=== PATIENT | male | born 1955 | race Caucasian/White ===

== ENCOUNTER 2020-11-13 10:24 | Emergency (ER) | payer OTHER, SELFPAY ==
[2020-11-13 10:25] VITALS: BP 169/108; PULSE 101; RESP 16; TEMP 36.9; O2SAT 99; BMI 22.7
--- NOTE | 2020-11-13 10:43 | ED.VIS.GI ---
HPI HPI - GI History of Present Illness Chief Complaint: Abd Pain Informant: patient Narrative Narrative: Patient has right groin pain. Is been ongoing for 4 days. He started with back pain a week ago when he was outside working. It is now concentrated in the right groin area. Is worse when he moves and walks. Laying in the bed he is currently pain-free. No nausea, vomiting, diarrhea or constipation. Denies any dysuria or hematuria. No history of kidney stones in the past. He has been trying aspirin and Tylenol without any relief. He does have a history of a hernia repair on that right side when he was a child. No history of any other abdominal surgeries. He denies any pain in his testicles. The pain does radiate down his right leg. PFSH PFSH Home Medications aspirin 81 mg PO DAILY 11/13/20 [History Last Taken Unknown] lidocaine [Lidoderm] 1 patch TOPICAL DAILY #15 ea 11/13/20 [Rx Last Taken Unknown] multivitamin with minerals [Multi-Daily W/Minerals] 2 tab PO DAILY 11/13/20 [History Last Taken Unknown] Allergy/AdvReac Type Severity Reaction Status Date / Time Sulfa (Sulfonamide Allergy Unknown Verified 11/13/20 10:25 Antibiotics) Surgical History (Updated 11/13/20 @ 10:[address] Donnie Angulo MD) H/O hernia repair Intracranial shunt Social History Smoking Status: Never smoker ROS ROS ED Constitutional Constitutional ED: Denies chills or fever(s) Eyes Eyes: Denies blurry vision, change in vision or diplopia ENT ENT ED: Denies ear pain, rhinorrhea or sore throat Cardiovascular Cardiovascular: Denies chest pain or palpitations Respiratory/Chest Respiratory/Chest: Denies cough, dyspnea or sputum Gastrointestinal Gastrointestinal: Reports abdominal pain Genitourinary Genitourinary ED: Denies dysuria, hematuria or urinary frequency Musculoskeletal Musculoskeletal: Denies back pain or neck pain Integumentary Denies change in pigmentation or rash Neurologic Neurologic: Denies headache(s), numbness or weakness Psychiatric Psychiatric: Denies anxiety or depression Endocrine Endocrinology: Denies polydipsia or polyuria EXAM Physical Exam Const Vital Signs: 11/13/20 10:25 Temperature 98.5 F Temperature Source Temporal Pulse Rate 101 H Respiratory Rate 16 Blood Pressure 169/108 H Blood Pressure Mean 128 Pulse Ox 99 Oxygen Delivery Method Room Air Positive well nourished and well developed General Appearance ED: well developed and NAD HEENT Reports moist mucous membranes normocephalic and atraumatic; Negative for tenderness Eyes PERRL and EOMs intact bilaterally Neck supple and no JVD Chest Wall Chest: Negative for tenderness Resp normal respiratory effort and clear to auscultation bilaterally Effort and Inspection: Negative for respiratory distress Cardio regular rate, regular rhythm and no murmurs Rate: regular rate Rhythm: regular rhythm GI soft to palpation, non-tender and non-distended Palpation: soft Back/Spine no CVA tenderness and no thoracic nor lumbar tenderness Cervical Spine: Negative for cervical spine tenderness Extremity normal to inspection and full ROM General Extremety ED: Negative for tenderness Neuro oriented x3, CN's II-XII intact bilaterally and no sensory deficits noted Sensorium / Orientation: awake and alert Motor Exam: strength 5/5 throughout Psych mental status grossly normal Skin no rashes or lesions noted MDM MDM MDM Narrative Medical decision making narrative: Patient was not having any pain lying in bed. Labs are unremarkable save a glucose of 108. CAT scan reveals nothing acute. I feel he likely has a groin strain as this did occur while he was working outside. Is worse with movement. Patient will be given a Lidoderm patch to place on this area. He continued to take NSAIDs at home and will follow up with his PCP. Lab Data Labs: Laboratory Results - last 24 hr 11/13/20 11/13/20 11/13/20 10:59 10:59 11:20 WBC Cancelled Corrected WBC Cancelled RBC Cancelled Hgb Cancelled Hct Cancelled MCV Cancelled MCH Cancelled MCHC Cancelled RDW Std Deviation Cancelled RDW Coeff of Reynaldo Cancelled Plt Count Cancelled MPV Cancelled Immature Gran % (Auto) Cancelled Neut % (Auto) Cancelled Lymph % (Auto) Cancelled [place] % (Auto) Cancelled Eos % (Auto) Cancelled Baso % (Auto) Cancelled Absolute Neuts (auto) Cancelled Absolute Lymphs (auto) Cancelled Total Counted Cancelled Neutrophils % (Manual) Cancelled Band Neutrophils % Cancelled Lymphocytes % (Manual) Cancelled Monocytes % (Manual) Cancelled Eosinophils % (Manual) Cancelled Basophils % (Manual) Cancelled Metamyelocytes % Cancelled Myelocytes % Cancelled Promyelocytes % Cancelled Blast Cells % Cancelled Plasma Cell % (Manual) Cancelled Other Cells % Cancelled Nucleated RBC % Cancelled Nucleated RBCs/100 WBC Cancelled Differential Comment Cancelled Diff Path Review Cancelled Hypersegmented Neuts Cancelled Atypical Lymphocytes Cancelled Reactive Lymphocytes Cancelled Smudge Cells Cancelled Toxic Granulation Cancelled Toxic Vacuolation Cancelled Dohle Bodies Cancelled Gracy Rods Cancelled Platelet Estimate Cancelled Plt Morphology Comment Cancelled RBC Morphology Cancelled Polychromasia Cancelled Hypochromasia Cancelled Poikilocytosis Cancelled Basophilic Stippling Cancelled Anisocytosis Cancelled Microcytosis Cancelled Macrocytosis Cancelled Spherocytes Cancelled Sickle Cells Cancelled Target Cells Cancelled Tear Drop Cells Cancelled Ovalocytes Cancelled Stomatocytes Cancelled [place] Bodies Cancelled Deniz Cells Cancelled Bite Cells Cancelled Crenated Cell Cancelled Acanthocytes (Spur) Cancelled Rouleaux Cancelled Schistocytes Cancelled Sodium Cancelled Potassium Cancelled Chloride Cancelled Carbon Dioxide Cancelled Anion Gap Cancelled BUN Cancelled Creatinine Cancelled Estim Creat Clear Calc Cancelled Est GFR (MDRD) Af Amer Cancelled Est GFR (MDRD) Non-Af Cancelled BUN/Creatinine Ratio Cancelled Glucose Cancelled Calcium Cancelled Total Bilirubin Cancelled AST Cancelled ALT Cancelled Alkaline Phosphatase Cancelled Total Protein Cancelled Albumin Cancelled Globulin Cancelled Albumin/Globulin Ratio Cancelled Urine Color Yellow Urine Clarity Clear Urine pH 7.0 Ur Specific [place] 1.010 Urine Protein 30 H Urine Glucose (UA) Normal Urine Ketones Negative Urine Occult Blood Negative Urine Nitrite Negative Urine Bilirubin Negative Urine Urobilinogen Normal Ur Leukocyte Esterase Negative Urine RBC 0 SEEN Urine WBC 0 SEEN Ur Squamous Epith Cells 0 SEEN Urine Bacteria 0 SEEN Urine Mucus 0 SEEN 11/13/20 11/13/20 11:40 11:40 WBC 6.2 Corrected WBC RBC 4.69 Hgb 14.9 Hct 42.4 MCV 90.4 MCH 31.8 MCHC 35.1 RDW Std Deviation 37.9 RDW Coeff of Reynaldo 11.6 Plt Count 249 MPV 10.7 Immature Gran % (Auto) 0.200 Neut % (Auto) 77.0 H Lymph % (Auto) 15.3 L [place] % (Auto) 6.5 Eos % (Auto) 0.2 Baso % (Auto) 0.8 Absolute Neuts (auto) 4.8 Absolute Lymphs (auto) 0.94 Total Counted Neutrophils % (Manual) Band Neutrophils % Lymphocytes % (Manual) Monocytes % (Manual) Eosinophils % (Manual) Basophils % (Manual) Metamyelocytes % Myelocytes % Promyelocytes % Blast Cells % Plasma Cell % (Manual) Other Cells % Nucleated RBC % 0 Nucleated RBCs/100 WBC Differential Comment Diff Path Review Hypersegmented Neuts Atypical Lymphocytes Reactive Lymphocytes Smudge Cells Toxic Granulation Toxic Vacuolation Dohle Bodies Gracy Rods Platelet Estimate Plt Morphology Comment RBC Morphology Polychromasia Hypochromasia Poikilocytosis Basophilic Stippling Anisocytosis Microcytosis Macrocytosis Spherocytes Sickle Cells Target Cells Tear Drop Cells Ovalocytes Stomatocytes [place] Bodies Deniz Cells Bite Cells Crenated Cell Acanthocytes (Spur) Rouleaux Schistocytes Sodium 139 Potassium 3.5 Chloride 106 Carbon Dioxide 27.0 Anion Gap 6 BUN 11 Creatinine 1.05 Estim Creat Clear Calc 66.12 Est GFR (MDRD) Af Amer 92 Est GFR (MDRD) Non-Af 76 BUN/Creatinine Ratio 10.5 Glucose 108 H Calcium 9.1 Total Bilirubin 0.80 AST 15 ALT 27 Alkaline Phosphatase 76 Total Protein 7.9 Albumin 4.0 Globulin 3.9 Albumin/Globulin Ratio 1.0 Urine Color Urine Clarity Urine pH Ur Specific [place] Urine Protein Urine Glucose (UA) Urine Ketones Urine Occult Blood Urine Nitrite Urine Bilirubin Urine Urobilinogen Ur Leukocyte Esterase Urine RBC Urine WBC Ur Squamous Epith Cells Urine Bacteria Urine Mucus Radiography Diagnostic Testing: Radiology Impression Abdomen/Pelvis CT 11/13/20 11:08 IMPRESSION: Normal unenhanced CT of the abdomen and pelvis. Electronically Signed: Ricardo Brandt MD at 11:51 EDT Tel , Service support , Discharge Plan Triage Chief Complaint: Abd Pain ED Provider: Donnie Angulo Dx/Rx/DC Orders Clinical Impression: Strain of right groin Instructions: ED Groin Strain Prescriptions: New lidocaine [Lidoderm] 5 % adhesive patch,medicated 1 patch topical DAILY Qty: 15 RF: 0 No Action aspirin 81 mg Tablet 81 mg PO DAILY RF: 0 multivitamin with minerals [Multi-Daily W/Minerals] Tablet 2 tab PO DAILY RF: 0 Primary Care Provider: Care PhysicianLoulou Primary Referrals: Care Physician,No Primary [Primary Care Provider] - Disposition Disposition: Home, self care
--- NOTE | 2020-11-13 11:08 | CT_ITS ---
STUDY: CT ABDOMEN AND PELVIS WITHOUT CONTRAST REASON FOR EXAM: Male, 65 years old. Pain RADIATION DOSAGE (If Supplied By Facility): CTDIvol = ( 7.14 ) mGy, DLP = ( 408.32 ) mGycm TECHNIQUE: Transaxial images were obtained from the dome of the diaphragm to the symphysis pubis without oral contrast, and without intravenous contrast. Sagittal and coronal images were reconstructed. Individualized dose optimization techniques were used for this CT. COMPARISON: None. FINDINGS: The visualized lung bases are unremarkable. The visualized portions of the heart are within normal limits. Normal liver. Normal gallbladder and extrahepatic biliary system. Normal spleen. Normal pancreas. Normal bilateral adrenal glands. Normal right kidney. Normal left kidney. Normal visualized stomach. Normal small intestine. Normal colon. There is non-visualization of the appendix. Normal abdominal aorta. Normal inferior vena cava. Normal retroperitoneum. Normal urinary bladder. Normal abdominal wall. 3 screws within the left femoral neck. CT/Abdomen/Pelvis without Cont IMPRESSION: Normal unenhanced CT of the abdomen and pelvis. Electronically Signed: Ricardo Brandt MD at 11:51 EDT Tel , Service support ,
[2020-11-13 11:26] LABS: Bacteria 0 SEEN /hpf (None Seen); Mucous, Urine 0 SEEN /hpf (<or=2+); Red Blood Cells-Urine 0 SEEN /hpf (0-5); Squamous Epithelial Cells - UA 0 SEEN /hpf (0-5); White Blood Cells 0 SEEN /hpf (0-5)
[2020-11-13 11:27] LABS: Color, Urine Yellow (Yellow); Glucose, Dipstick Normal (Normal); Ketone-Dipstick Negative (Negative); Leukocyte Esterase-Dipstick Negative /ul (Negative); Nitrite-Dipstick Negative (Negative); Occult Blood-Urine Negative /ul (Negative); Protein-Dipstick 30 mg/dl (Negative); Urine Bilirubin Dipstick Negative (Negative); Urine Clarity Clear (Clear); Urine Urobilinogen Normal (Normal)
[2020-11-13 11:45] LABS: Absolute Lymphocyte Count 0.94 X10^3/uL (0.83-4.51); Absolute Neutrophil Count 4.8 X10^3/uL (2.0-7.7); Basophil# 0.05 X10^3/uL; Basophil% 0.8 % (0-1); Eosinophil# 0.01 X10^3/uL; Eosinophils% 0.2 % (0-5); Hematocrit 42.4 % (40-54); Hemoglobin 14.9 g/dL (13.0-16.5); Lymphocyte # 0.94 X10^3/ul (0.83-4.51); Lymphocyte % 15.3 % (19-41); Mean Corp Hgb Conc 35.1 g/dL (32-36); Mean Corpuscular Hgb 31.8 pg (27.0-32.0); Mean Corpuscular Volume 90.4 fL (80-94); Mean Platelet Vol. 10.7 fl (6.2-12.0); Monocyte% 6.5 % (0-10); NRBC Flagged by Analyzer 0 % (0-5); Neutrophil # 4.75 X10^3/uL (2.7-7.7); Platelet Count 249 K/mm3 (150-450); RBC Distribution Width CV 11.6 % (11.6-14.6); RBC Distribution Width SD 37.9 fl (35.1-43.9); Red Blood Count 4.69 M/mm3 (4.6-6.2); White Blood Count 6.2 K/mm3 (4.4-11.0)
[2020-11-13 11:59] LABS: AST(SGOT) 15 U/L (15-37); Alanine Aminotransfer ALT/SGPT 27 U/L (16-61); Alkaline Phosphatase 76 U/L (45-117); Anion Gap 6 (5-15); BUN 11 mg/dL (7-18); BUN/Creat Ratio 10.5 RATIO (10-20); Calcium,Total 9.1 mg/dL (8.5-10.1); Chloride 106 mmol/L (98-107); Creatinine, Serum 1.05 mg/dL (0.70-1.30); EST Glomerular Filtration Rate 76 mL/min (>60); Est Glom Filt Rate - Afr Amer 92 mL/min (>60); Estimated Creatinine Clearance 66.12 ml/min; Globulin 3.9 g/dL (2.2-4.2); Glucose 108 mg/dL (74-106); Potassium 3.5 mmol/L (3.5-5.1); Protein, Total 7.9 g/dL (6.4-8.2); Sodium Level 139 mmol/L (136-145)
[2020-11-13 12:18] VITALS: RESP 16
== END 2020-11-13 12:18 | disposition home or self-care (01) ==
PROVIDERS: Emergency Provider Emergency Medicine
DX: Z79.82 Long term (current) use of aspirin (principal); S39.011A Strain of muscle, fascia and tendon of abdomen, initial encounter; X58.XXXA Exposure to other specified factors, initial encounter; Y93.89 Activity, other specified; Y92.9 Unspecified place or not applicable; Y99.9 Unspecified external cause status
CPT/HCPCS: 74176; 80053; 81001; 85025; 99283; A4216

== ENCOUNTER 2022-09-09 14:58 | Inpatient (IN) | payer BC, MEDICARE, SELFPAY ==
[2022-09-09] VITALS (8 sets, daily range): BP systolic 159–220; BP diastolic 97–134; PULSE 69–97; RESP 14–29; TEMP 36.2–37; O2SAT 96–99; BMI 26.6; BMI 26.4
--- NOTE | 2022-09-09 15:41 | CT_ITS ---
STUDY: CT BRAIN WITHOUT CONTRAST REASON FOR EXAM: Male, 66 years old. Intermittent headache for 5 days relieved from with Excedrin. Headache increases with standing. Hypertension. RADIATION DOSAGE (If Supplied By Facility): CTDIvol = ( 23.66 ) mGy, DLP = ( 545.18 ) mGycm TECHNIQUE: Transaxial CT imaging of the brain was performed without administration of intravenous contrast material. Individualized dose optimization techniques were used for this CT. COMPARISON: No relevant priors. FINDINGS: The study is technically suboptimal. Normal soft tissue structures. Normal calvarium. There is marked dilatation of the ventricular system. There is a catheter extending through the occiput to the posterior aspect of the foramen magnum. There are surgical clips at the skull base adjacent to the catheter tip. There is a second catheter within the left temporal and occipital horns left lateral ventricle. There is questionable segments of defect within the catheter distally. There is a large fluid collection in the posterior right cerebellar hemisphere which is questionably separate from the lateral ventricles vertex. To extent posteriorly into the basal cisterns. In the right frontal horn is a focal area of increased attenuation measuring 1.7 x 1.4 x 1.1 cm of uncertain etiology. This does not have the appearance of a hemorrhage although calcified choroid is suspected. There are areas of decreased attenuation within the white matter tracts of the supratentorial brain, consistent with microvascular disease changes. Normal basal ganglia and thalami. Normal brainstem. Normal cerebellum. There is no intracranial hemorrhage. There are no findings of an acute ischemic infarction. Normal visualized paranasal sinuses. CT/Brain/Head without Contrast IMPRESSION: 1. Markedly dilated ventricles with evidence of CLINICAL AUDIOLOGIST shunt catheters posteriorly as described. 2. 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 If there is continued concern repeat study is recommended to confirm stability if MRI cannot be performed. Electronically Signed: Clay Chow DO at 16:25 EST ,
--- NOTE | 2022-09-09 15:42 | EKG12_ITS ---
Test Reason : Blood Pressure : / mmHG Vent. Rate : 092 BPM Atrial Rate : 092 BPM P-R Int : 124 ms QRS Dur : 108 ms QT Int : 394 ms P-R-T Axes : 033 036 049 degrees QTc Int : 487 ms Normal sinus rhythm Low voltage QRS (Limb Leads) Prolonged QT Abnormal ECG Confirmed by MAYNOR CASTILLO, LUCAS ([id number]), associate editor JUSTIN MULLER ([id number]) on 09/11/2022 10:24:16 AM Referred By: KUMAR Confirmed By:LUCAS MCGUIRE MD
[2022-09-09] MEDS: Labetalol (Prefilled) 20 MG/4 ML 10 MG IV ×2 (15:51→16:33)
--- NOTE | 2022-09-09 15:52 | EX.ED.VIS.HA ---
HPI History of Present Illness Chief Complaint: Headache Informant: patient Onset/Context/Timing Onset: Days (5 days) Context: Gradual Timing: Waxes and wanes Quality -Headache: Positive for Throbbing and Other (Pressure) Current Severity: Moderate Maximum Severity: Moderate Narrative Narrative: Patient present secondary to 5 days of waxing and waning headache. He describes pain in both the right and left sides of his head. He denies recent head injury or illness. He has a history of an intracranial shunt that he states was placed when he was a child secondary to hydronephrosis. It has not been working for several years. He admits he does not follow with a doctor regularly. [facility] Home Medications aspirin 81 mg tablet 81 mg PO DAILY 11/13/20 [History Last Taken Unknown] lidocaine 5 % topical patch (Lidoderm) 1 patch topical DAILY #15 ea 11/13/20 [Rx Last Taken Unknown] multivitamin with minerals 2 tab PO DAILY 11/13/20 [History Last Taken Unknown] Allergy/AdvReac Type Severity Reaction Status Date / Time Sulfa (Sulfonamide Allergy Unknown Verified 09/09/22 15:02 Antibiotics) Family History no significant family his Surgical History H/O hernia repair Intracranial shunt Social History Smoking Status: Never smoker ROS ROS ED Constitutional Constitutional ED: Denies chills or fever(s) Eyes Eyes: Denies change in vision or discharge from eye(s) ENT ENT ED: Denies discharge from eye(s), rhinorrhea or sore throat Cardiovascular Cardiovascular: Denies chest pain or palpitations Respiratory/Chest Respiratory/Chest: Denies cough or dyspnea Gastrointestinal Gastrointestinal: Denies abdominal pain, diarrhea, nausea or vomiting Genitourinary Genitourinary ED: Denies dysuria Musculoskeletal Musculoskeletal: Denies back pain or extremity pain Integumentary Denies Abrasions or rash Neurologic Neurologic: Reports headache(s); Denies weakness Psychiatric Psychiatric: Denies anxiety or depression Allergic/Immunologic Allergic/Immunologic ED: Denies lip swelling or urticaria EXAM Physical Exam Const Vital Signs: 09/09/22 14:59 09/09/22 15:07 09/09/22 15:50 Temperature 98.2 F Temperature Source Temporal Pulse Rate 94 97 91 Respiratory Rate 14 18 24 H Blood Pressure 205/110 H 220/134 H 205/115 H Blood Pressure Mean 141 162 145 Pulse Ox 99 98 Oxygen Delivery Method Room Air Room Air 09/09/22 16:19 Temperature Temperature Source Pulse Rate 85 Respiratory Rate 29 H Blood Pressure 195/118 H Blood Pressure Mean 143 Pulse Ox 97 Oxygen Delivery Method Room Air Positive well nourished and well developed General Appearance ED: well developed HEENT Reports normocephalic and head/scalp atraumatic Eyes PERRL and EOMs intact bilaterally Neck supple Chest Wall inspection of chest normal and palpation of chest normal Resp normal respiratory effort and clear to auscultation bilaterally Cardio regular rate and regular rhythm GI normal to inspection, nondistended, normoactive bowel sounds Palpation: soft Extremity normal to inspection Neuro oriented x3 and no sensory deficits noted Neuro Narrative: Normal neuro exam with NIH equals 0 Sensorium / Orientation: alert Motor Exam: strength 5/5 throughout Psych mental status grossly normal Skin no rashes or lesions noted MDM MDM MDM Narrative Medical decision making narrative: Patient placed on clinical research monitor. EKG obtained to evaluate for ischemia/arrhythmia. Lab work obtained to evaluate for leukocytosis, anemia, electrolyte derangement. Urinalysis obtained to evaluate for renal injury from longstanding hypertension. Patient given 10 mg of IV labetalol. History & Record Review Discussion w/independent historian: Significant other Additional record(s) reviewed:: Prior ED visit Lab Data Attestation: I reviewed the patient's lab results. Labs: Laboratory Results - last 24 hr 09/09/22 09/09/22 09/09/22 15:45 15:45 16:35 WBC 8.4 RBC 4.95 Hgb 15.6 Hct 44.0 MCV 88.9 MCH 31.5 MCHC 35.5 RDW Std Deviation 36.2 RDW Coeff of Reynaldo 11.4 L Plt Count 146 L MPV 12.0 Immature Gran % (Auto) 0.700 Neut % (Auto) 83.2 H Lymph % (Auto) 10.[address] [place] % (Auto) 4.9 Eos % (Auto) 0.0 Baso % (Auto) 0.4 Absolute Neuts (auto) 7.0 Absolute Lymphs (auto) 0.90 Nucleated RBC % 0 Sodium 132 L Potassium 3.3 L Chloride 97 L Carbon Dioxide 24.0 Anion Gap 11 BUN 13 Creatinine 1.03 Estim Creat Clear Calc 64.52 Est GFR (MDRD) Af Amer 93 Est GFR (MDRD) Non-Af 77 BUN/Creatinine Ratio 12.6 Glucose 117 H Calcium 9.2 Total Bilirubin 1.40 H Direct Bilirubin 0.37 H AST 15 ALT 20 Alkaline Phosphatase 75 Total Protein 7.9 Albumin 4.1 Globulin 3.8 Urine Color Yellow Urine Clarity Clear Urine pH 7.0 Ur Specific [place] 1.010 Urine Protein 30 H Urine Glucose (UA) Normal Urine Ketones 15 H Urine Occult Blood Negative Urine Nitrite Negative Urine Bilirubin Negative Urine Urobilinogen 1 H Ur Leukocyte Esterase Negative Radiography Chest X-Ray - ED: 1 View, Read by ED Physician and Chronic Changes Diagnostic Testing: Clinical Impression(s) from Imaging Studies Brain CT 09/09/22 15:41 IMPRESSION: 1. Markedly dilated ventricles with evidence of ASSISTANT INVENTORY MANAGER shunt catheters posteriorly as described. 2. 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 If there is continued concern repeat study is recommended to confirm stability if MRI cannot be performed. Electronically Signed: Clay Chow DO at 16:25 EST Reading [facility] and [facility] Tel [phone], Service support , Chest X-Ray 09/09/22 16:00 IMPRESSION: Elevated left hemidiaphragm without acute cardiopulmonary disease. Electronically Signed: Clay Chow DO at 16:26 EST Reading Location ID and State: [facility] Tel [phone], Service support , EKG Initial EKG: Attestation: I personally reviewed and interpreted this EKG as follows: Interpretation: Sinus Rhythm (Sinus at 92 with concern for LVH. No acute ischemia.) Treatment and Re-Evaluation Narrative: After 10 mg of IV labetalol patient's blood pressure came down to 195 systolic. Second dose of labetalol was given. CBC and chemistry studies are largely unremarkable. Normal renal function is noted. Sodium is slightly low at 132 and potassium is slightly low at 3.3. Urinalysis reveals [address] scan of the head reveals markedly dilated ventricles with a ASSISTANT INVENTORY MANAGER shunt. This is unchanged when compared to prior study from 10 years ago. 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 Recommend repeat CT or MRI. I spoke with MRI staff and because the patient has his prior shunt they are not able to scan him to they have further details of that surgery. This was performed roughly 63 years ago in [place] and records are not available. In light of this MRI will not be an option. Patient's blood pressure was in the room was in the mid 170s, however did increase again back to 196 systolic. He will be given additional medication for his blood pressure and headache. Given his symptoms of headache, dizziness I do feel it would be worthwhile to observe the patient overnight for blood pressure control. Repeat CT can be performed to ensure no change to this area that is believed to be calcified choroid. I will speak with the hospitalist. Discharge Plan Triage Chief Complaint: Headache ED Provider: Yu Cueva Dx/Rx/DC Orders Clinical Impression: Hypertensive urgency, Headache, Dizziness Prescriptions: No Action aspirin 81 mg Tablet 81 mg PO DAILY multivitamin with minerals [Multi-Daily W/Minerals] Tablet 2 tab PO DAILY lidocaine [Lidoderm] 5 % adhesive patch,medicated 1 patch topical DAILY Qty: 15 0RF Rx Instructions: leave on most painful area for up to 12 hrs Primary Care Provider: Care Physician,No Primary Referrals: Care Physician,No Primary [Primary Care Provider] - Disposition Disposition: Acute Care [facility]
--- NOTE | 2022-09-09 16:00 | RAD_ITS ---
STUDY: X-RAY CHEST REASON FOR EXAM: Male, 66 years old. Headache. Migraine. TECHNIQUE: Single AP portable view of the chest. COMPARISON: None. FINDINGS: Marked elevation left hemidiaphragm. The lungs are clear. There is no demonstrated pleural abnormality. Normal size heart. Normal mediastinum and sandra. Normal visualized pulmonary arteries. Normal visualized aortic arch and descending thoracic aorta. The thoracic spine is obscured by the mediastinum. Normal visualized ribs, clavicles, and shoulders. Gas-filled colon is seen beneath the left diaphragm. RAD/Chest 1 View (Portable) IMPRESSION: Elevated left hemidiaphragm without acute cardiopulmonary disease. Electronically Signed: Clay Chow DO at 16:26 EST ,
[2022-09-09 16:02] LABS: Basophil# 0.03 X10^3/uL; Basophil% 0.4 % (0-1); Hemoglobin 15.6 g/dL (13.0-16.5); Lymphocyte % 10.8 % (19-41); Mean Corp Hgb Conc 35.5 g/dL (32-36); Mean Corpuscular Hgb 31.5 pg (27.0-32.0); Mean Corpuscular Volume 88.9 fL (80-94); Monocyte# 0.41 X10^3/uL; Monocyte% 4.9 % (0-10); NRBC Flagged by Analyzer 0 % (0-5); Neutrophil # 6.97 X10^3/uL (2.7-7.7); Neutrophil % 83.2 % (47-70); Platelet Count 146 K/mm3 (150-450); RBC Distribution Width CV 11.4 % (11.6-14.6); RBC Distribution Width SD 36.2 fl (35.1-43.9); Red Blood Count 4.95 M/mm3 (4.6-6.2); White Blood Count 8.4 K/mm3 (4.4-11.0)
[2022-09-09 16:17] LABS: AST(SGOT) 15 U/L (15-37); Alanine Aminotransfer ALT/SGPT 20 U/L (16-61); Albumin, Serum 4.1 g/dL (3.2-5.0); Alkaline Phosphatase 75 U/L (45-117); Anion Gap 11 (5-15); BUN 13 mg/dL (7-18); BUN/Creat Ratio 12.6 RATIO (10-20); Bilirubin, Direct 0.37 mg/dL (0.00-0.30); Calcium,Total 9.2 mg/dL (8.5-10.1); Chloride 97 mmol/L (98-107); Creatinine, Serum 1.03 mg/dL (0.70-1.30); EST Glomerular Filtration Rate 77 mL/min (>60); Est Glom Filt Rate - Afr Amer 93 mL/min (>60); Estimated Creatinine Clearance 64.52 ml/min; Globulin 3.8 g/dL (2.2-4.2); Glucose 117 mg/dL (74-106); Potassium 3.3 mmol/L (3.5-5.1); Protein, Total 7.9 g/dL (6.4-8.2); Sodium Level 132 mmol/L (136-145)
[2022-09-09 16:57] LABS: Bacteria 0 SEEN /hpf (None Seen); Mucous, Urine 0 SEEN /hpf (<or=2+); Red Blood Cells-Urine 0 SEEN /hpf (0-5); Squamous Epithelial Cells - UA 0 SEEN /hpf (0-5); White Blood Cells 0 SEEN /hpf (0-5)
[2022-09-09 17:01] LABS: Color, Urine Yellow (Yellow); Glucose, Dipstick Normal (Normal); Ketone-Dipstick 15 mg/dl (Negative); Leukocyte Esterase-Dipstick Negative /ul (Negative); Nitrite-Dipstick Negative (Negative); Occult Blood-Urine Negative /ul (Negative); Protein-Dipstick 30 mg/dl (Negative); Urine Bilirubin Dipstick Negative (Negative); Urine Clarity Clear (Clear); Urine Urobilinogen 1 mg/dl (Normal)
--- NOTE | 2022-09-09 17:28 | NURSING ---
[facility]
--- NOTE | 2022-09-09 17:32 | HP.PCM.HOS_ITS ---
HPI - General General Date of Admission: 09/09/22 Date of Service: 09/09/22 Chief Complaint: headache HPI Narrative SEBASTIEN ARRIAGA, is a 66 M who presents with headache. Patient past medical history significant for congenital hydrocephalus for which patient underwent READERS' ADVISORY SERVICE LIBRARIAN shunt. Patient headache started 5 days prior to his admission. Did experience nausea but no vomiting. Patient denied any visual disturbance. Presented to the emergency department as a result of persistent symptoms. Patient was found to have markedly elevated blood pressure greater than 200. CAT scan did reveal markedly dilated ventricles with evidence of READERS' ADVISORY SERVICE LIBRARIAN shunt catheters apparently unchanged. Patient was admitted to a monitored bed as a case of hypertensive urgency [facility] Home Medications aspirin 81 mg tablet 81 mg PO DAILY 11/13/20 [History Last Taken Unknown] lidocaine 5 % topical patch (Lidoderm) 1 patch topical DAILY #15 ea 11/13/20 [Rx Last Taken Unknown] multivitamin with minerals 2 tab PO DAILY 11/13/20 [History Last Taken Unknown] Allergy/AdvReac Type Severity Reaction Status Date / Time Sulfa (Sulfonamide Allergy Unknown Verified 09/09/22 15:02 Antibiotics) Family History (Updated 09/09/22 @ 17:[address] Tom Cohen MD) Mother Dyslipidemia Family History no significant family his Surgical History H/O hernia repair Intracranial shunt Social History Smoking Status: Never smoker ROS ROS Narrative GENERAL: denies fever, chills, night sweats, HEENT: headache, denies sinus congestion, RESPIRATORY: denies cough, sputum production, shortness of breath, dyspnea on exertion CARDIAC: denies chest pain, palpitations, orthopnea, PND GASTROINTESTINAL: nausea, but no vomiting GENITOURINARY: denies dysuria, urgency, frequency, heamaturia EXTREMITY: denies swelling MUSCULOSKELETAL: denies current joint pain or tenderness NEUROLOGIC: denies focal numbness, weakness, tingling HEMATOLOGIC: denies easy bruising and/or hemorrhage INTEGUMENT: denies rashes PSYCHIATRIC: denies suicidal or homicidal ideation Vital Signs Vital Signs Vital Signs: 09/09/22 14:59 09/09/22 15:07 09/09/22 15:50 Temperature 98.2 F Temperature Source Temporal Pulse Rate 94 97 91 Respiratory Rate 14 18 24 H Blood Pressure 205/110 H 220/134 H 205/115 H Blood Pressure Mean 141 162 145 Pulse Ox 99 98 Oxygen Delivery Method Room Air Room Air 09/09/22 16:19 Temperature Temperature Source Pulse Rate 85 Respiratory Rate 29 H Blood Pressure 195/118 H Blood Pressure Mean 143 Pulse Ox 97 Oxygen Delivery Method Room Air Weight Weight: 74.843 kg Body Mass Index (BMI) 26.6 Physical Exam Narrative GENERAL: cooperative HEENT: Atraumatic; normocephalic EYES; Anicteric, Normal Conjunctiva NECK; supple, normal thyroid, RESPIRATORY: Diminished to auscultation CARDIOVASCULAR: Regular S1 S2, GI: soft, normoactive bowel sounds, : No Renal angle tenderness; EXTREMITIES: No edema, no clubbing, MUSCULOSKELETAL: no muscle wasting NEURO: Awake; no lateralizing signs. SKIN: No Rash PSYCH; Flat affect Results Lab / Micro Data Result Diagrams: 09/09/22 15:45 09/09/22 15:45 Labs: Laboratory Results - last 24 hr 09/09/22 15:45: WBC 8.4, RBC 4.95, Hgb 15.6, Hct 44.0, MCV 88.9, MCH 31.5, MCHC 35.5, RDW Std Deviation 36.2, RDW Coeff of Reynaldo 11.4 L, Plt Count 146 L, MPV 12. 0, Immature Gran % (Auto) 0.700, Neut % (Auto) 83.2 H, Lymph % (Auto) 10.8 L, [place] % (Auto) 4.9, Eos % (Auto) 0.0, Baso % (Auto) 0.4, Absolute Neuts (auto) 7.0, Absolute Lymphs (auto) 0.90, Nucleated RBC % 0 09/09/22 15:45: Sodium 132 L, Potassium 3.3 L, Chloride 97 L, Carbon Dioxide 24.0, Anion Gap 11, BUN 13, Creatinine 1.03, Estim Creat Clear Calc 64.52, Est GFR (MDRD) Af Amer 93, Est GFR (MDRD) Non-Af 77, BUN/Creatinine Ratio 12.6, Glucose 117 H, Calcium 9.2, Total Bilirubin 1.40 H, Direct Bilirubin 0.37 H, AST 15, ALT 20, Alkaline Phosphatase 75, Total Protein 7.9, Albumin 4.1, Globulin 3.8 09/09/22 16:35: Urine Color Yellow, Urine Clarity Clear, Urine pH 7.0, Ur Specific [place] 1.010, Urine Protein 30 H, Urine Glucose (UA) Normal, Urine Ketones 15 H, Urine Occult Blood Negative, Urine Nitrite Negative, Urine Bilirubin Negative, Urine Urobilinogen 1 H, Ur Leukocyte Esterase Negative, Urine RBC 0 SEEN, Urine WBC 0 SEEN, Ur Squamous Epith Cells 0 SEEN, Urine Bacteria 0 SEEN, Urine Mucus 0 SEEN Radiology Impression Brain CT 09/09/22 15:41 IMPRESSION: 1. Markedly dilated ventricles with evidence of READERS' ADVISORY SERVICE LIBRARIAN shunt catheters posteriorly as described. 2. 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 If there is continued concern repeat study is recommended to confirm stability if MRI cannot be performed. Electronically Signed: Clay Chow DO at 16:25 EST Reading Location ID and State: [place] / [place] Tel [phone], Service support , Chest X-Ray 09/09/22 16:00 IMPRESSION: Elevated left hemidiaphragm without acute cardiopulmonary disease. Electronically Signed: Clay Chow DO at 16:26 EST Reading Location ID and State: [employer] / [place] Tel [phone], Service support , Assessment & Plan Assessment/Plan (1) Hypertensive urgency: (2) Headache: PLAN: Plan Patient is a 66-year-old gentleman presented with intractable headache found to have markedly elevated blood pressure 1. Acute hypertensive urgency ? Patient has apparently no follow-up with any primary care physician for years. Was started on hydralazine as needed for systolic blood pressure greater than 160. Was also placed on scheduled amlodipine as well as HCTZ 2. Headache ? Secondary to above as well as patient underlying hydrocephalus 3. Hydrocephalus ? Patient has a READERS' ADVISORY SERVICE LIBRARIAN shunt which is apparently clogged. Did discuss with patient and the family on the need to follow-up with primary care physician to be referred to be evaluated by neurosurgery 4. Hyponatremia ? Patient started on IV fluid repeat BMP ordered for a.m. 5. Hypokalemia ? Corrected per protocol repeat potassium ordered for a.m. 6. DVT prophylaxis ? SC Lovenox Time spent in the patient's overall evaluation,decision-making process, review of diagnostic data, adjustment of management, discussion with other providers, nursing nursing and ancillary staff involved in patient's care documentation, 75 Minutes Advance planning; did discuss with the patient and family regarding advanced directives as well as CODE STATUS. Did explain the various scenarios involved ( FULL CODE, DNR CCA, DNR CCA with no intubation, and DNR CC and what each meant) patient to remain full code with CPR and intubation if needed. Order was placed. Time spent on discussion 18 minutes. Charges/Coding Visit Charges Inpatient E&M: 30380 Init Hosp L3 Procedures Hospitalists Procedures: 20574 Advncd Care Plan 30 Min
[2022-09-09] MEDS: Metoclopramide 10 MG/2 ML Vial 5 MG IV (17:34)
[2022-09-09] MEDS: hydrALAZINE 20 MG/ML Vial 10 MG IV (17:36)
[2022-09-09] MEDS: DiphenhydrAMINE 50 MG/ML Syringe 12.5 MG IV (17:38)
[2022-09-09] MEDS: Ketorolac 15 MG/ML Vial IV (17:38)
[2022-09-09] MEDS: amLODIPine 10 MG Tablet PO (19:43)
[2022-09-09] MEDS: hydroCHLOROthiazide 25 MG Tablet PO (19:43)
[2022-09-09] MEDS: Acetaminophen 500 MG Tablet 1000 MG PO (19:43)
[2022-09-09] MEDS: Pantoprazole Sodium 40 MG Tablet PO (19:43)
[2022-09-09 20:27] LABS: Magnesium 2.1 mg/dL (1.6-2.6)
[2022-09-09] MEDS: Potassium Chloride Oral Soln 20 MEQ/15 ML UDC 40 MEQ PO (22:45)
[2022-09-10] VITALS (14 sets, daily range): BP systolic 140–175; BP diastolic 90–106; PULSE 70–107; RESP 16–18; TEMP 36.6–37; O2SAT 95–99
[2022-09-10] MEDS: hydrALAZINE 20 MG/ML Vial 10 MG IV ×2 (03:46→14:08)
[2022-09-10] MEDS: 0.9% Saline Lock 10 ML Syringe IV ×6 (03:47→21:03)
[2022-09-10] MEDS: Acetaminophen 500 MG Tablet 1000 MG PO ×2 (05:32→20:54)
[2022-09-10] MEDS: Ondansetron 4 MG/2 ML Vial IV ×2 (05:45→14:08)
[2022-09-10 06:00] LABS: Absolute Lymphocyte Count 1.22 X10^3/uL (0.83-4.51); Absolute Neutrophil Count 6.6 X10^3/uL (2.0-7.7); Basophil# 0.04 X10^3/uL; Basophil% 0.5 % (0-1); Eosinophil# 0.02 X10^3/uL; Eosinophils% 0.2 % (0-5); Hematocrit 42.2 % (40-54); Hemoglobin 15.4 g/dL (13.0-16.5); Lymphocyte # 1.22 X10^3/ul (0.83-4.51); Lymphocyte % 14.3 % (19-41); Mean Corp Hgb Conc 36.5 g/dL (32-36); Mean Corpuscular Hgb 31.6 pg (27.0-32.0); Mean Corpuscular Volume 86.7 fL (80-94); Mean Platelet Vol. 10.8 fl (6.2-12.0); Monocyte# 0.67 X10^3/uL; Monocyte% 7.8 % (0-10); NRBC Flagged by Analyzer 0 % (0-5); Neutrophil # 6.58 X10^3/uL (2.7-7.7); Neutrophil % 76.8 % (47-70); POSITIVE COUNT YES; Platelet Count 95 K/mm3 (150-450); RBC Distribution Width CV 11.2 % (11.6-14.6); RBC Distribution Width SD 35.4 fl (35.1-43.9); Red Blood Count 4.87 M/mm3 (4.6-6.2); White Blood Count 8.6 K/mm3 (4.4-11.0)
[2022-09-10 06:11] LABS: Differential Indicated SCAN CRITERIA MET
[2022-09-10 06:44] LABS: Platelet Estimate MOD DEC (ADEQ); Platelet Morphology CLUMPED
[2022-09-10 07:04] LABS: Anion Gap 12 (5-15); BUN 11 mg/dL (7-18); BUN/Creat Ratio 11.9 RATIO (10-20); Calcium,Total 9.5 mg/dL (8.5-10.1); Chloride 95 mmol/L (98-107); Cholesterol 201 mg/dL (200); Creatinine, Serum 0.92 mg/dL (0.70-1.30); EST Glomerular Filtration Rate 87 mL/min (>60); Est Glom Filt Rate - Afr Amer 106 mL/min (>60); Estimated Creatinine Clearance 72.24 ml/min; Glucose 124 mg/dL (74-106); High Density Lipoprotein 49 mg/dL; Magnesium 2.2 mg/dL (1.6-2.6); Potassium 2.9 mmol/L (3.5-5.1); Sodium Level 130 mmol/L (136-145); Thyroid Stim Hormone (TSH) 0.46 uIU/mL (0.358-3.74); Triglycerides 126 mg/dL; Very Low Density Lipoprotein 25 mg/dL (5-40)
--- NOTE | 2022-09-10 08:09 | PN.HOSP_ITS ---
Reason for Visit Reason for Visit: Diagnoses Hypertensive urgency (09/09/22) Headache, unspecified (09/09/22) Subjective Subjective Patient seen admitted some improvement in headache blood pressure improved but still not optimal further adjustment made to his antihypertensive regimen. Diagnostic data significant for hypokalemia Objective Data Objective Data Vital Signs: Vital Signs Temp Pulse Resp BP Pulse Ox O2 Del Method 98.6 F 95 18 168/96 H 95 Room Air 09/10/22 03:45 09/10/22 05:30 09/10/22 03:45 09/10/22 05:30 09/10/22 03:45 09/10/22 03:53 Oxygen Delivery Method Room Air Weight: 74.389 kg Body Mass Index (BMI) 26.4 Intake & Output: Intake and Output for Last 24 Hours 09/08/22 09/09/22 09/10/22 23:59 23:59 23:59 Intake Total 480 / 480 240 / 240 Output Total 300 / 300 600 / 600 Balance 180 / 180 -360 / -360 Lab / Micro Data Result Diagrams: 09/10/22 05:24 09/10/22 05:24 Labs: Laboratory Results - last 24 hr 09/09/22 15:45: WBC 8.4, RBC 4.95, Hgb 15.6, Hct 44.0, MCV 88.9, MCH 31.5, MCHC 35.5, RDW Std Deviation 36.2, RDW Coeff of Reynaldo 11.4 L, Plt Count 146 L, MPV 12.0, Immature Gran % (Auto) 0.700, Neut % (Auto) 83.2 H, Lymph % (Auto) 10.8 L, [place] % (Auto) 4.9, Eos % (Auto) 0.0, Baso % (Auto) 0.4, Absolute Neuts (auto) 7.0, Absolute Lymphs (auto) 0.90, Nucleated RBC % 0 09/09/22 15:45: Sodium 132 L, Potassium 3.3 L, Chloride 97 L, Carbon Dioxide 24.0, Anion Gap 11, BUN 13, Creatinine 1.03, Estim Creat Clear Calc 64.52, Est GFR (MDRD) Af Amer 93, Est GFR (MDRD) Non-Af 77, BUN/Creatinine Ratio 12.6, Glucose 117 H, Calcium 9.2, Total Bilirubin 1.40 H, Direct Bilirubin 0.37 H, AST 15, ALT 20, Alkaline Phosphatase 75, Total Protein 7.9, Albumin 4.1, Globulin 3.8 09/09/22 15:45: Magnesium 2.1 09/09/22 16:35: Urine Color Yellow, Urine Clarity Clear, Urine pH 7.0, Ur Specific [place] 1.010, Urine Protein 30 H, Urine Glucose (UA) Normal, Urine Ketones 15 H, Urine Occult Blood Negative, Urine Nitrite Negative, Urine Bilirubin Negative, Urine Urobilinogen 1 H, Ur Leukocyte Esterase Negative, Urine RBC 0 SEEN, Urine WBC 0 SEEN, Ur Squamous Epith Cells 0 SEEN, Urine Bacteria 0 SEEN, Urine Mucus 0 SEEN 09/10/22 05:24: Sodium 130 L, Potassium 2.9 L, Chloride 95 L, Carbon Dioxide 23.0, Anion Gap 12, BUN 11, Creatinine 0.92, Estim Creat Clear Calc 72.24, Est GFR (MDRD) Af Amer 106, Est GFR (MDRD) Non-Af 87, BUN/Creatinine Ratio 11.9, Glucose 124 H, Calcium 9.5, Magnesium 2.2, Triglycerides 126, Cholesterol 201 H, LDL Cholesterol 127, VLDL Cholesterol 25, HDL Cholesterol 49, TSH 0.46 09/10/22 05:24: WBC 8.6, RBC 4.87, Hgb 15.4, Hct 42.2, MCV 86.7, MCH 31.6, MCHC 36.5 H, RDW Std Deviation 35.4, RDW Coeff of Reynaldo 11.2 L, Plt Count 95 L, MPV 10.8, Immature Gran % (Auto) 0.400, Neut % (Auto) 76.8 H, Lymph % (Auto) 14.3 L, [place] % (Auto) 7.8, Eos % (Auto) 0.2, Baso % (Auto) 0.5, Absolute Neuts (auto) 6.6, Absolute Lymphs (auto) 1.22, Nucleated RBC % 0, Platelet Estimate MOD DEC, Plt Morphology Comment CLUMPED Radiography Diagnostic Testing: Radiology Impression Brain CT 09/09/22 15:41 IMPRESSION: 1. Markedly dilated ventricles with evidence of BRANCH OPERATION EVALUATION MANAGER shunt catheters posteriorly as described. 2. 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 If there is continued concern repeat study is recommended to confirm stability if MRI cannot be performed. Electronically Signed: Clay Chow DO at 16:25 EST , Chest X-Ray 09/09/22 16:00 IMPRESSION: Elevated left hemidiaphragm without acute cardiopulmonary disease. Electronically Signed: Clay Chow DO at 16:26 EST Reading Location ID and State: [facility] / [place] Tel [phone], Service support , Physical Exam Narrative GENERAL: cooperative HEENT: Atraumatic; normocephalic EYES; Anicteric, Normal Conjunctiva NECK; supple, normal thyroid, RESPIRATORY: Diminished to auscultation CARDIOVASCULAR: Regular S1 S2, GI: soft, normoactive bowel sounds, : No Renal angle tenderness; EXTREMITIES: No edema, no clubbing, MUSCULOSKELETAL: no muscle wasting NEURO: Awake; no lateralizing signs. SKIN: No Rash PSYCH; Flat affect Assessment & Plan Assessment/Plan (1) Hypertensive urgency: (2) Headache: PLAN: Plan Patient is a 66-year-old gentleman presented with intractable headache found to have markedly elevated blood pressure 1. Acute hypertensive urgency ? Patient has apparently no follow-up with any primary care physician for years. Was started on hydralazine as needed for systolic blood pressure greater than 160. Was also placed on scheduled amlodipine as well as HCTZ ? 09/10/2022 patient blood pressure control not optimal HCT was discontinued in view of severe hypokalemia. Added lisinopril and metoprolol to his treatment regimen 2. Headache ? Secondary to above as well as patient underlying hydrocephalus 3. Hydrocephalus ? Patient has a BRANCH OPERATION EVALUATION MANAGER shunt which is apparently clogged. Did discuss with patient and the family on the need to follow-up with primary care physician to be referred to be evaluated by neurosurgery ? 09/10/[address] ordered for further eval 4. Hyponatremia ? Patient started on IV fluid repeat BMP ordered for a.m. ? 09/10/2022 sodium levels remain relatively stable 5. Hypokalemia ? Corrected per protocol repeat potassium ordered for a.m. ? 09/10/2022 potassium down to 2.9 additional replacement given 6. DVT prophylaxis ? SC Lovenox Time spent in the patient's overall evaluation,decision-making process, review of diagnostic data, adjustment of management, discussion with other providers, nursing nursing and ancillary staff involved in patient's care documentation, 55 Minutes Charges/Coding Visit Charges Inpatient E&M: 56859 Subs Hosp L3
[2022-09-10] MEDS: Aspirin 81 MG TAB.CHEW PO (08:15)
--- NOTE | 2022-09-10 09:15 | CT_ITS ---
STUDY: CT BRAIN WITHOUT CONTRAST REASON FOR EXAM: Male, 66 years old. Hydrocephalus RADIATION DOSAGE (If Supplied By Facility): CTDIvol = ( 44.99 ) mGy, DLP = ( 964.84 ) mGycm TECHNIQUE: Transaxial CT imaging of the brain was performed without administration of intravenous contrast material. Individualized dose optimization techniques were used for this CT. COMPARISON: Comparison is made with prior study dated September 09, 2022. FINDINGS: A shunt tube is seen in the inferior posterior left lateral ventricle. Prior left posterior occipital craniotomy. Marked degree of hydrocephalus worse involving the left lateral ventricle. Persistent focal hematoma in the right frontal horn. There are areas of decreased attenuation within the white matter tracts of the supratentorial brain, consistent with microvascular disease changes. Normal basal ganglia and thalami. Normal brainstem. Normal cerebellum. There is no intracranial hemorrhage. There are no findings of an acute ischemic infarction. Normal visualized paranasal sinuses. CT/Brain/Head without Contrast IMPRESSION: Stable examination demonstrating severe hydrocephalus. Stable focal irregular increased density in the right frontal horn suggestive of a possible hemorrhage. Electronically Signed: Boaz Wing MD at 9:56 EST ,
[2022-09-10] MEDS: Lisinopril 10 MG Tablet PO (10:46)
[2022-09-10] MEDS: Metoprolol Tartrate 50 MG Tablet PO ×2 (10:46→20:51)
[2022-09-10] MEDS: Pantoprazole Sodium 40 MG Tablet PO (10:47)
[2022-09-10] MEDS: hydroCHLOROthiazide 25 MG Tablet PO (10:47)
[2022-09-10] MEDS: amLODIPine 10 MG Tablet PO (10:47)
[2022-09-10] MEDS: Enoxaparin 40 MG/0.4 ML Syringe SC (10:47)
[2022-09-10] MEDS: Potassium Chloride Oral Tablet 20 MEQ 40 MEQ PO (10:48)
[2022-09-10] MEDS: Potassium Chloride 10mEq/100mL 10 MEQ/100 ML IV.SOLN. 100 MEQ IV BOLUS ×4 (10:49→14:01)
--- NOTE | 2022-09-10 15:13 | CASEMGMT ---
Tertiary facilities in-network with patient's insurance: [facility], [facility], [facility], , [facility]
--- NOTE | 2022-09-10 15:45 | NURSING ---
pt had bp done but found to have arm tensed up off bed whole time while checked. pt looked terrified during assessment and in at bedside. per pt has not been to dr or neurologist since a child and wasnt on any bp meds. pt and knew that shunt wasnt working since 2016 bp rechecked and still elevated. bp meds given. pt hesitant to take but teaching given on risk of stroke.
--- NOTE | 2022-09-10 16:36 | PCM.DC.SUM ---
Providers Date of Admission: 09/10/22 Date of Discharge: 09/11/22 Primary Care Physician: No Primary Care Phys Reason For Visit: ELEVATED BP, HEADACHE Diagnosis Discharge Diagnosis (1) Hypertensive urgency: Status: Acute Code(s): I16.0 - Hypertensive urgency (2) Headache: Status: Acute Code(s): R51.9 - Headache, unspecified Plan Patient is a 66-year-old gentleman presented with intractable headache found to have markedly elevated blood pressure 1. Acute hypertensive urgency ? Patient has apparently no follow-up with any primary care physician for years. Was started on hydralazine as needed for systolic blood pressure greater than 160. Was also placed on scheduled amlodipine as well as HCTZ ? 09/10/2022 patient blood pressure control not optimal HCT was discontinued in view of severe hypokalemia. Added lisinopril and metoprolol to his treatment regimen 2. Headache ? Secondary to above as well as patient underlying hydrocephalus 3. Hydrocephalus ? Patient has a RESEARCH ANIMAL ATTENDANT shunt which is apparently clogged. Did discuss with patient and the family on the need to follow-up with primary care physician to be referred to be evaluated by neurosurgery ? 09/10/[address] ordered for further eval ? Repeat head CT did not demonstrate stable examination demonstrating severe hydrocephalus. Stable focal irregular increased density in the right frontal horn suggestive of a possible hemorrhage. Based on above findings arrangements were made for patient to be transferred to [facility] for neurosurgery evaluation 4. Hyponatremia ? Patient started on IV fluid repeat BMP ordered for a.m. ? 09/10/2022 sodium levels remain relatively stable 5. Hypokalemia ? Corrected per protocol repeat potassium ordered for a.m. ? 09/10/2022 potassium down to 2.9 additional replacement given 6. DVT prophylaxis ? SC Lovenox Time spent in the patient's overall evaluation,decision-making process, review of diagnostic data, adjustment of management, discussion with other providers, nursing nursing and ancillary staff involved in patient's care documentation, 35 Minutes Medications at Discharge Home Medications aspirin 81 mg tablet 81 mg PO DAILY health maintenance 11/13/20 multivitamin with minerals 2 tab PO DAILY health maintenance 11/13/20 latanoprost 0.005 % eye drops 1 drp EACH EYE QHS glaucoma 09/09/22 amlodipine 10 mg tablet 10 mg PO DAILY #0 tabs 09/10/22 hydrochlorothiazide 25 mg tablet 25 mg PO DAILY #0 tabs 09/10/22 lisinopril 10 mg tablet 10 mg PO DAILY #0 tabs 09/10/22 metoprolol tartrate 50 mg tablet 50 mg PO BID #0 tabs 09/10/22 potassium chloride 20 mEq tablet,extended release(part/cryst) (Klor-Con M) 20 meq PO BIDCM #0 tabs 09/10/22 Hospital Course Summary of Care Provided Minutes Spent on Discharge: 35 Physical Exam Narrative GENERAL: cooperative HEENT: Atraumatic; normocephalic EYES; Anicteric, Normal Conjunctiva NECK; supple, normal thyroid, RESPIRATORY: Diminished to auscultation CARDIOVASCULAR: Regular S1 S2, GI: soft, normoactive bowel sounds, : No Renal angle tenderness; EXTREMITIES: No edema, no clubbing, MUSCULOSKELETAL: no muscle wasting NEURO: Awake; no lateralizing signs. SKIN: No Rash PSYCH; Flat affect Weight / BMI Weight Weight: 74.389 kg Body Mass Index (BMI) 26.4 ABG / Lab / Microbiology Data Result Diagrams: 09/10/22 05:24 09/10/22 05:24 Laboratory: Laboratory Results - last 24 hr 09/09/22 15:45: Magnesium 2.1 09/09/22 16:35: Urine Color Yellow, Urine Clarity Clear, Urine pH 7.0, Ur Specific [place] 1.010, Urine Protein 30 H, Urine Glucose (UA) Normal, Urine Ketones 15 H, Urine Occult Blood Negative, Urine Nitrite Negative, Urine Bilirubin Negative, Urine Urobilinogen 1 H, Ur Leukocyte Esterase Negative, Urine RBC 0 SEEN, Urine WBC 0 SEEN, Ur Squamous Epith Cells 0 SEEN, Urine Bacteria 0 SEEN, Urine Mucus 0 SEEN 09/10/22 05:24: Sodium 130 L, Potassium 2.9 L, Chloride 95 L, Carbon Dioxide 23.0, Anion Gap 12, BUN 11, Creatinine 0.92, Estim Creat Clear Calc 72.24, Est GFR (MDRD) Af Amer 106, Est GFR (MDRD) Non-Af 87, BUN/Creatinine Ratio 11.9, Glucose 124 H, Calcium 9.5, Magnesium 2.2, Triglycerides 126, Cholesterol 201 H, LDL Cholesterol 127, VLDL Cholesterol 25, HDL Cholesterol 49, TSH 0.46 09/10/22 05:24: WBC 8.6, RBC 4.87, Hgb 15.4, Hct 42.2, MCV 86.7, MCH 31.6, MCHC 36.5 H, RDW Std Deviation 35.4, RDW Coeff of Reynaldo 11.2 L, Plt Count 95 L, MPV 10.8, Immature Gran % (Auto) 0.400, Neut % (Auto) 76.8 H, Lymph % (Auto) 14.3 L, [place] % (Auto) 7.8, Eos % (Auto) 0.2, Baso % (Auto) 0.5, Absolute Neuts (auto) 6.6, Absolute Lymphs (auto) 1.22, Nucleated RBC % 0, Platelet Estimate MOD DEC, Plt Morphology Comment CLUMPED Radiography Diagnostic Testing: Radiology Impression Brain CT 09/10/22 09:15 IMPRESSION: Stable examination demonstrating severe hydrocephalus. Stable focal irregular increased density in the right frontal horn suggestive of a possible hemorrhage. Electronically Signed: Boaz Wing MD at 9:56 EST Reading Location ID and State: [address] [place] [address] , Service support , D/C Instructions Discharge Diet: No restrictions Discharge Activity: Return to Normal Activity Call your doctor if you observe: Fever of 101 or Higher, Shortness of breath, Fainting spells and Chest pain Meaningful Use Info Meaningful Use Diagnoses (Choose all that apply): None applicable Discharge Plan Admission Admit Date/Time: 09/10/22 16:23 Attending Provider: Tom Cohen Primary Care Provider: Care Physician,No Primary Discharge Orders/Prescriptions Prescriptions: New potassium chloride [Klor-Con M20] 20 mEq Tablet,Er Particles/Crystals 20 meq PO BIDCM Qty: 0 0RF amlodipine 10 mg Tablet 10 mg PO DAILY Qty: 0 0RF lisinopril 10 mg Tablet 10 mg PO DAILY Qty: 0 0RF metoprolol tartrate 50 mg Tablet 50 mg PO BID Qty: 0 0RF hydrochlorothiazide 25 mg Tablet 25 mg PO DAILY Qty: 0 0RF Continued multivitamin with minerals Tablet 2 tab PO DAILY latanoprost 0.005 % drops 1 drp EACH EYE QHS Label Comments: ONE DROP INTO BOTH EYES EVERYDAY AT BED TIME Held aspirin 81 mg Tablet 81 mg PO DAILY Hold Instructions: Resume on 09/24/22. Referrals / Follow Up: Care Physician,No Primary [Primary Care Provider] - Disposition Disposition (needs filled in before D/C Order can be placed): Acute Care Hospital Charges/Coding Visit Charges Inpatient E&M: 45637 Disch Hosp >30min
[2022-09-10] MEDS: Potassium Chloride Oral Tablet 20 MEQ PO (17:18)
--- NOTE | 2022-09-10 17:51 | NURSING ---
consent for transfer gone over and pt signed. up in chair with no diff voiced. pt amb to br then around to chair. bp remains elevated and no change since prn's
[2022-09-10] MEDS: hydrALAZINE 20 MG/ML Vial IV (18:30)
[2022-09-10] MEDS: proCHLORPERazine 10 MG/2 ML Vial 5 MG IV (21:00)
[2022-09-10] MEDS: MELATONIN 3 MG TABLET PO (21:02)
[2022-09-10] MEDS: Latanoprost 0.005% 1 Bottle 1 DRP EACH EYE (21:05)
[2022-09-11 03:50] VITALS: BP 136/90; PULSE 88; RESP 18; TEMP 36.8; O2SAT 95
--- NOTE | 2022-09-11 06:31 | NURSING ---
Family and patient informed up bed availably at [facility] and potential cook pickled meat at 0830 with verbalized understanding from both parties
[2022-09-11 07:52] VITALS: O2SAT 95
[2022-09-11 08:40] VITALS: BP 155/103; PULSE 89; RESP 14; TEMP 36.6; O2SAT 95
--- NOTE | 2022-09-11 08:41 | NURSING ---
report given to Physician's transport team. family at bedside with pt
--- NOTE | 2022-09-11 08:41 | NURSING ---
0745 report given to Molly TUCKER at [facility]
== END 2022-09-11 08:45 | disposition short-term general hospital (02) | DRG 305 ==
LOC: ED 17:51 → PCU 17:54
PROVIDERS: Family Medicine; Admitting Provider Internal Medicine; Emergency Provider Emergency Medicine; Visit Provider Internal Medicine
DX: I16.0 Hypertensive urgency (principal); E87.1 Hypo-osmolality and hyponatremia; T85.09XA Other mechanical complication of ventricular intracranial (communicating) shunt, initial encounter; Q03.9 Congenital hydrocephalus, unspecified; E87.6 Hypokalemia; X58.XXXA Exposure to other specified factors, initial encounter; Z79.82 Long term (current) use of aspirin; Z79.899 Other long term (current) drug therapy
CPT/HCPCS: 36415; 70450; 71045; 80048; 80061; 80076; 81001; 83735; 84443; 85025; 93005; 99285; A4216; J2405

== ENCOUNTER → 2023-06-18 | Outpatient (CLI) | payer BC, SELFPAY ==
[2023-06-18 12:30] LABS: Vitamin D,25 Hydroxy 28.8 ng/mL
[2023-06-18 12:43] LABS: AST(SGOT) 22 U/L (15-37); Alanine Aminotransfer ALT/SGPT 27 U/L (16-61); Alkaline Phosphatase 76 U/L (45-117); Anion Gap 7 (5-15); BUN 14 mg/dL (7-18); BUN/Creat Ratio 13.1 RATIO (10-20); Calcium,Total 8.8 mg/dL (8.5-10.1); Chloride 107 mmol/L (98-107); Cholesterol 207 mg/dL (200); Creatinine, Serum 1.07 mg/dL (0.70-1.30); EST Glomerular Filtration Rate 73 mL/min (>60); Est Glom Filt Rate - Afr Amer 89 mL/min (>60); Globulin 4.1 g/dL (2.2-4.2); Glucose 95 mg/dL (74-106); High Density Lipoprotein 44 mg/dL; PSA,Total - Annual Screen 0.97 ng/mL (0.00-4.00); Potassium 4.2 mmol/L (3.5-5.1); Protein, Total 8.1 g/dL (6.4-8.2); Sodium Level 138 mmol/L (136-145); Thyroid Stim Hormone (TSH) 1.38 uIU/mL (0.358-3.74); Triglycerides 198 mg/dL; Very Low Density Lipoprotein 40 mg/dL (5-40)
[2023-06-18 17:38] LABS: Absolute Lymphocyte Count 2.15 X10^3/uL (0.83-4.51); Basophil# 0.07 X10^3/uL; Basophil% 0.8 % (0-1); Eosinophil# 0.15 X10^3/uL; Eosinophils% 1.8 % (0-5); Hematocrit 42.3 % (40-54); Hemoglobin 14.1 g/dL (13.0-16.5); Lymphocyte # 2.15 X10^3/ul (0.83-4.51); Lymphocyte % 25.8 % (19-41); Mean Corp Hgb Conc 33.3 g/dL (32-36); Mean Corpuscular Hgb 31.3 pg (27.0-32.0); Mean Corpuscular Volume 93.8 fL (80-94); Mean Platelet Vol. 11.4 fl (6.2-12.0); Monocyte# 0.95 X10^3/uL; Monocyte% 11.4 % (0-10); NRBC Flagged by Analyzer 0 % (0-5); Neutrophil # 4.95 X10^3/uL (2.7-7.7); Neutrophil % 59.5 % (47-70); Platelet Count 158 K/mm3 (150-450); RBC Distribution Width CV 11.5 % (11.6-14.6); RBC Distribution Width SD 39.4 fl (35.1-43.9); Red Blood Count 4.51 M/mm3 (4.6-6.2); White Blood Count 8.3 K/mm3 (4.4-11.0)
== END | disposition home or self-care (01) ==
PROVIDERS: Referring Provider Family Medicine; Visit Provider Family Medicine
DX: I10 Essential (primary) hypertension (principal); E87.6 Hypokalemia; Z12.5 Encounter for screening for malignant neoplasm of prostate; Z13.21 Encounter for screening for nutritional disorder
CPT/HCPCS: 36415; 80053; 80061; 82306; 84153; 84443; 85025; G0103

== ENCOUNTER → 2023-08-25 | Outpatient (CLI) | payer BC, SELFPAY ==
[2023-08-25 10:47] LABS: Albumin, Serum 3.8 g/dL (3.2-5.0); BUN 13 mg/dL (7-18); BUN/Creat Ratio 11.9 RATIO (10-20); Calcium,Total 9.2 mg/dL (8.5-10.1); Chloride 107 mmol/L (98-107); Creatinine, Serum 1.09 mg/dL (0.70-1.30); EST Glomerular Filtration Rate 72 mL/min (>60); Est Glom Filt Rate - Afr Amer 87 mL/min (>60); Glucose 97 mg/dL (74-106); Phosphorus 2.9 mg/dL (2.5-4.9); Sodium Level 137 mmol/L (136-145)
== END | disposition home or self-care (01) ==
PROVIDERS: Referring Provider Internal Medicine Nephrology; Visit Provider Internal Medicine Nephrology
DX: I15.9 Secondary hypertension, unspecified (principal)
CPT/HCPCS: 36415; 80069

== ENCOUNTER → 2024-12-28 | Outpatient (CLI) | payer BC, SELFPAY ==
[2024-12-28 15:56] LABS: Absolute Neutrophil Count 4.7 X10^3/uL (2.0-7.7); Basophil# 0.06 X10^3/uL; Basophil% 0.9 % (0-1); Eosinophil# 0.05 X10^3/uL; Eosinophils% 0.8 % (0-5); Hematocrit 43.3 % (40-54); Hemoglobin 14.8 g/dL (13.0-16.5); Lymphocyte % 19.7 % (19-41); Mean Corp Hgb Conc 34.2 g/dL (32-36); Mean Corpuscular Hgb 31.6 pg (27.0-32.0); Mean Corpuscular Volume 92.3 fL (80-94); Monocyte# 0.45 X10^3/uL; Monocyte% 6.8 % (0-10); NRBC Flagged by Analyzer 0 % (0-5); Neutrophil # 4.73 X10^3/uL (2.7-7.7); Neutrophil % 71.5 % (47-70); POSITIVE COUNT YES; RBC Distribution Width CV 11.6 % (11.6-14.6); RBC Distribution Width SD 39.2 fl (35.1-43.9); Red Blood Count 4.69 M/mm3 (4.6-6.2); White Blood Count 6.6 K/mm3 (4.4-11.0)
[2024-12-28 16:20] LABS: ALB/GLOB Ratio 1.3 RATIO (0.9-2.4); AST(SGOT) 24 U/L (<=37); Alanine Aminotransfer ALT/SGPT 17 U/L (<=46); Albumin, Serum 4.4 g/dL (3.4-4.8); Alkaline Phosphatase 88 U/L (40-129); Anion Gap 14 (5-15); BUN 11 mg/dL (4-19); BUN/Creat Ratio 11.4 RATIO (10-20); Calcium,Total 9.6 mg/dL (7.6-11.0); Carbon Dioxide 20.5 mmol/L (21.0-32.0); Chloride 103 mmol/L (98-108); Creatinine, Serum 0.98 mg/dL (0.70-1.20); EST Glomerular Filtration Rate 84 (>60); Globulin 3.3 g/dL (2.2-4.2); Glucose 89 mg/dL (70-99); Potassium 4.2 mmol/L (3.3-5.1); Protein, Total 7.7 g/dL (5.9-8.4); Sodium Level 137 mmol/L (133-145); Total Bilirubin 0.81 mg/dL (0.00-1.30)
[2024-12-28 18:40] LABS: Cholesterol 213 mg/dL (<=200); High Density Lipoprotein 43 mg/dL; Low Density Lipoprotein Calc. 136 mg/dL; Triglycerides 172 mg/dL; Very Low Density Lipoprotein 34 mg/dL (5-40); cholesterol:hdl ratio screen 4.94
[2024-12-28 18:41] LABS: PSA,Total - Annual Screen 0.91 ng/mL (0.02-4.00); Vitamin D,25 Hydroxy 48.6 ng/mL (30-100)
[2024-12-28 23:03] LABS: Differential Indicated SCAN CRITERIA MET; Mean Platelet Vol. 11.2 fl (6.2-12.0)
[2024-12-28 23:05] LABS: Differential Comment SCANNED; Platelet Estimate ADEQUATE (ADEQ); Platelet Morphology CLUMPED; Red Cell Morphology NORM C+C NORMAL (NORM C&C)
== END | disposition home or self-care (01) ==
LOC: MFPLAB 11:22
PROVIDERS: PCP Family Medicine; Referring Provider Family Medicine; Visit Provider Family Medicine
DX: Z00.00 Encounter for general adult medical examination without abnormal findings (principal); Z12.5 Encounter for screening for malignant neoplasm of prostate; Z13.220 Encounter for screening for lipoid disorders; Z13.1 Encounter for screening for diabetes mellitus; I10 Essential (primary) hypertension; E55.9 Vitamin D deficiency, unspecified
CPT/HCPCS: 36415; 80053; 80061; 82306; 84153; 85025; G0103